=== PATIENT | male | born 1935 | race Caucasian/White ===

== ENCOUNTER → 2016-10-24 | Outpatient (CLI) | payer OTHER ==
[2015-06-29 14:50] VITALS: BP 172/72
--- NOTE | 2016-10-25 07:53 | MRI ---
HISTORY: Chronic low back pain, sciatica Study: MRI lumbar spine without contrast Comparison: May 30, 2015 Technique: Multiplanar multi-sequence MRI of the lumbar spine was obtained. Sagittal T1, sagittal T 2, and stir weighted images, axial T1, and axial T2 images were obtained. Findings: The lumbar spine demonstrates normal alignment with the expected signal characteristics of the bone marrow. The conus of the cord terminates normally. T12 -- L1: There is a small not significantly compressive rightward disc protrusion which is associa aria with a small annular rent. The neural foramina are patent. The joints are normal. L1 -- L2: No evidence for compressive disc disease. The neural foramina are patent. The joints are n ormal. L2 -- L3: Mild concentric disc bulging contributes to mild lateral recess narrowing bilaterally left slightly worse than right. L3 -- L4: Concentric disk bulging effaces the thecal sac and contributes along with facet arthropath y to moderate lateral recess narrowing bilaterally. L4 -- L5: Broad-based disc protrusion contributes along with ligamentous hypertrophy, pedicular shor tening, and facet arthropathy to a severe spinal stenosis with associated lateral recess and foramin al narrowing bilaterally right worse than left. L5 -- S1: There is a small central disc protrusion which causes mild thecal sac effacement. The neur al foramina are patent. The joints are normal. IMPRESSION: As above Reported By:
== END ==
LOC: RAD 08:07
PROVIDERS: ATTEND Nurse Practitioner Family
DX: M51.36 Other intervertebral disc degeneration, lumbar region (principal)
CPT/HCPCS: 72148

== ENCOUNTER 2016-11-15 12:02 | Day surgery (SDC) | payer OTHER ==
[2016-11-15] MEDS ORDERED: XYLOCAINE 1 % (PLAIN) ONE (13:21)
[2016-11-15] MEDS ORDERED: KENALOG INJ 40 MG ONE (13:21)
[2016-11-15] MEDS ORDERED: MARCAINE 0.25% WITH EPI IJ ONE (13:22)
--- NOTE | 2016-11-15 13:40 | DR.H&P ---
H&P - History & Physical for Day of: H&P Date: 11/15/16 - Chief Complaint Chief Complaint: both sides of my low back hurts. my shot 2 years ago fixed my leg pain - Allergies Allergies/Adverse Reactions: Allergies Allergy/AdvReac Type Severity Reaction Status Date / Time Penicillin G AdvReac Intermediate RASH Verified 12/19/12 10:32 - History of Present Illness History of Present Illness: long standing h/o above cc. had a facet injection L4-5, 5-1 Left and this relievd his left radiculopathy. now presents with low back pain bilaterally. MRI conforms facet arthopathy and disc protrusion at multiple levels. - Past Medical History Past Medical History: Kidney Stones, [place] - Past Surgical History Surgical History: Angioplasty/Stents - Social History Does patient currently use any type of tobacco product: Yes Have you used tobacco products in the last 12 months: Yes Type of Tobacco Use: Cigarettes How many years tobacco product used: 60 Packs per day or dips/chews per day: 20 Does any household member use tobacco: Yes Alcohol Use: None Drug Use: None - Physical Exam Vital Signs: Temperature 97.8 F Pulse Rate 93 Respiratory Rate 20 Blood Pressure [Right Arm] 172/72 Blood Pressure 150/66 O2 Sat by Pulse Oximetry 99 Musculoskeletal: Back:Thoracic (no pain on palpation. no stepoff/deformity), Back:Lumbar (pain on palpation L3-S1 bilaterally. neg slr/patricks) Mood Description: Calm Affect: Normal Speech Pattern: Clear - Assessment/Plan (1) Low back pain Qualifiers: Chronicity: C Back pain laterality: B Sciatica presence: S Sciatica laterality: S Status: Acute Plan: interlaminar magaly L4-5 midline
[2016-11-15 14:11] VITALS: BP 174/74
== END 2016-11-15 14:15 | disposition home or self-care (01) | DRG 552 ==
LOC: SURG1 12:02
PROVIDERS: ATTEND Internal Medicine
PROC: 3E0R3BZ Introduction of Anesthetic Agent into Spinal Canal, Percutaneous Approach (ICD-10-PCS; principal; 2016-11-15 12:45)
PROC: 3E0R33Z Introduction of Anti-inflammatory into Spinal Canal, Percutaneous Approach (ICD-10-PCS; principal; 2016-11-15 12:45)
PROC: B01BZZZ Fluoroscopy of Spinal Cord (ICD-10-PCS; principal; 2016-11-15 12:45)
DX: M54.5 Low back pain (principal)
CPT/HCPCS: 62323; 76000; A4222; S0020; J2001; J3301

== ENCOUNTER 2017-01-29 09:43 | Day surgery (SDC) | payer OTHER ==
--- NOTE | 2017-01-29 10:24 | DR.H&P ---
H&P - History & Physical for Day of: H&P Date: 01/29/17 - Chief Complaint Chief Complaint: my back hurts - Allergies Allergies/Adverse Reactions: Allergies Allergy/AdvReac Type Severity Reaction Status Date / Time MS Penicillin G AdvReac Intermediate RASH Verified 12/19/12 10:32 - History of Present Illness History of Present Illness: long standing h/o above cc. magaly in 2015 "fixed (his ) leg pain." recent interlaminar magaly with no relief. pain is confined to back around L4 on palpation and pointed at by patient - Past Medical History Past Medical History: Kidney Stones, [place] - Past Surgical History Surgical History: Angioplasty/Stents - Social History Does patient currently use any type of tobacco product: Yes Have you used tobacco products in the last 12 months: Yes Type of Tobacco Use: Cigarettes How many years tobacco product used: 65 Packs per day or dips/chews per day: 1 pk day Does any household member use tobacco: No Alcohol Use: None Drug Use: None - Review of Systems Musculoskeletal: Back Pain (L4 on palpation) - Physical Exam Vital Signs: Temperature 97.5 F Pulse Rate 88 Respiratory Rate 20 Blood Pressure [Right Arm] 172/72 Blood Pressure 189/73 O2 Sat by Pulse Oximetry 100 Musculoskeletal: Back:Thoracic (no pain on palpation. ), Back:Lumbar (mild pain on palpation. more prominent on right. ) - Assessment/Plan (1) Low back pain Qualifiers: Chronicity: C Back pain laterality: B Sciatica presence: S Sciatica laterality: S Status: Acute Plan: facet injection L3-4, 4-5 right
[2017-01-29] MEDS: XYLOCAINE 1 % (PLAIN) ONE ×2 (10:37→10:38)
[2017-01-29] MEDS: KENALOG INJ 40 MG ONE ×2 (10:38→10:41)
[2017-01-29] MEDS: MARCAINE/EPINEPHRINE ONE ×2 (10:38→10:41)
[2017-01-29 10:52] VITALS: BP 151/66
== END 2017-01-29 10:58 | disposition home or self-care (01) | DRG 552 ==
LOC: SURG1 09:43
PROVIDERS: ATTEND Internal Medicine
PROC: 3E0U33Z Introduction of Anti-inflammatory into Joints, Percutaneous Approach (ICD-10-PCS; 2017-01-29)
PROC: BR16ZZZ Fluoroscopy of Lumbar Facet Joint(s) (ICD-10-PCS; 2017-01-29)
PROC: 3E0U3BZ Introduction of Anesthetic Agent into Joints, Percutaneous Approach (ICD-10-PCS; principal; 2017-01-29 11:30)
DX: M54.5 Low back pain (principal)
CPT/HCPCS: 64493; 64494; 64495; 76000; S0020; J2001; J3301

== ENCOUNTER 2018-11-20 16:22 | Inpatient (IN) ==
[2018-11-20] MEDS ORDERED: LASIX IVP ONE (17:04)
[2018-11-20] MEDS ORDERED: NS 1000 ML 1,000 ML IV SCH (17:04)
[2018-11-20] MEDS ORDERED: K-DUR TAB 20 MEQ PO ONE (17:04)
[2018-11-20] MEDS ORDERED: PHARMACY CONSULT - DOSE _____ XX SCH (17:04)
[2018-11-20 17:31] LABS: BASOPHILS # (AUTO) 0.1 X10^3/uL (0.0-0.1); BASOPHILS % (AUTO) 1.2 % (0.2-1.0); EOSINOPHILS # (AUTO) 0.4 x10^3/uL (0.0-0.2); EOSINOPHILS % (AUTO) 3.8 % (0.9-2.9); HEMATOCRIT 25.2 % (42.0-54.0); HEMOGLOBIN 8.1 g/dL (13.5-18.0); LYMPHOCYTES # (AUTO) 2.1 X10^3/uL (1.3-2.9); LYMPHOCYTES % (AUTO) 21.1 % (21.0-51.0); MEAN CORPUSCULAR VOLUME 72.1 fL (80.0-100.0); MONOCYTES # (AUTO) 0.7 x10^3/uL (0.3-0.8); MONOCYTES % (AUTO) 6.7 % (0.0-13.0); NEUTROPHILS # (AUTO) 6.8 x10^3/uL (2.2-4.8); NEUTROPHILS % (AUTO) 67.2 % (42.0-75.0); PLATELET COUNT 332 X10^3/uL (150.0-450.0); RED CELL DISTRIBUTION WIDTH 17.9 % (11.6-16.5); WHITE BLOOD COUNT 10.2 X10^3/uL (3.6-10.0)
--- NOTE | 2018-11-20 17:36 | DR.H&P ---
H&P - History & Physical for Day of: H&P Date: 11/20/18 - Chief Complaint Chief Complaint: SOB, WEAKNESS, DIZZY - History of Present Illness History of Present Illness: 83 [address] DIRECT ADMIT FROM DR STORY OFFICE AFTER PRESENTING FOR A FOLLOW UP VISIT FOR WEAKNESS, ANEMIA, ACUTE RENAL INSUFFICIENCY. PT HAD HEART CATH AND LOWER EXTREMITY CT WITH IV DYE ~2WEEKS AGO AND HAD ONSET OF RENAL FAILURE WITH CREAT >2, GFR<20 PER FAMILY. PT CO INCREASED WEAKNESS, SOB FEELS LIKE HE IS GOING TO PASSED OUT WALKING TO MAIL BOX. BP 90/50 IN OFFICE WITH O2 SAT 77%. PT HGB 7.7 ON OUT, SEEN GAMING MANAGER THIS AM AND RECOMMEND TRANSFUSION AND RENAL US, WITH IRON REPLACEMENT. PT HAS PMH OF COPD, HTN, CAD, CHF, ANEMIA, RENAL FAILURE. - Past Medical History Past Medical History: Arthritis, CHF, COPD, Coronary Artery Disease, Kidney Stones, [place] Additional Medical History: HEARING IMPAIRMENT - Past Surgical History Surgical History: Angioplasty/Stents - Family History Family Medical History: Diabetes Mellitus, Cancer - Social History Does patient currently use any type of tobacco product: Yes Have you used tobacco products in the last 12 months: Yes Type of Tobacco Use: Cigarettes Alcohol Use: None Drug Use: None Risks, benefits, and alternatives of opioids discussed: No Prescription drug monitoring program results: PDMP reviewed and no concerns identified (IN DR STORY OFFICE [facility]) - Medications Home Medications: penicillin G Allergy (Verified 09/09/18 10:36) - Review of Systems Constitutional: Weakness, Malaise Eyes: No Symptoms Reported ENT: No Symptoms Reported Respiratory: Shortness of Breath, SOB with Excertion Cardiovascular: Palpitations, Edema, Light Headedness Gastrointestinal: Nausea Genitourinary: No Symptoms Reported Musculoskeletal: Back Pain, Leg Pain Neurological: Weakness, Other (DIZZINESS) - Physical Exam Vital Signs: Blood Pressure [Right Arm] 219/91 Blood Pressure 171/73 Oriented: Normal Eyes: Blurred Vision (CHRONIC VISION IMPAIRMENT) Ear: Normal Nose: Normal Throat: Normal Respiratory: RML Diminished, RLL Diminished, LML Diminished, LLL Diminished Cardiovascular: Edema : Normal Auscultation: Bowel Sounds: Normal Palpation: Normal Tenderness: Normal Skin: Decreased Turgur Musculoskeletal: Right, Left, Leg, Back:Lumbar, Sensory Deficit Psychiatric: Anxiety Affect: Anxious Speech Pattern: Clear, Appropriate - Assessment/Plan (1) Anemia Status: Acute Plan: ADMIT, TYPE CROSS MATCH AND TRANSFUSE 2 UNITS PRBC PER PROTOCOL WITH LASIX IV AFTER FIRST UNIT. EKG AND CXR ON ADMISSION. SUPPLEMENTAL O2. ADMISSION LABS, UA, OCCULT STOOL, IRON REPLACEMENT. RENAL US (2) Acute renal failure due to contrast agent Status: Acute (3) Iron deficiency anemia Status: Acute (4) Weakness Status: Acute (5) SOB (shortness of breath) on exertion Status: Acute Plan: HX CAD, COPD, CHF. CXR ON ADMISSION SUPPLEMENTAL O2. TREAT ANEMIA - Allergies Allergies/Adverse Reactions: Allergies Allergy/AdvReac Type Severity Reaction Status Date / Time penicillin G Allergy Verified 09/09/18 10:36
[2018-11-20 17:37] LABS: PLATELET MORPHOLOGY COMMENT NORMAL (NORMAL)
[2018-11-20 17:39] LABS: ANISOCYTOSIS SLIGHT; HYPOCHROMASIA 1+; MICROCYTOSIS SLIGHT
[2018-11-20 17:43] LABS: ALANINE AMINOTRANSFERASE 8 Units/L (12-78); ALBUMIN 3.4 g/dL (3.4-5.0); ALKALINE PHOSPHATASE 86 Units/L (46-116); ASPARTATE AMINO TRANSFERASE 13 Units/L (15-37); BLOOD UREA NITROGEN 33 mg/dL (7-18); CALCIUM 8.8 mg/dL (8.5-10.1); CARBON DIOXIDE 27.4 mmol/L (21-32); CHLORIDE 103 mmol/L (98-107); CREATININE 2.28 mg/dL (0.70-1.30); SODIUM 138 mmol/L (136-145); TOTAL PROTEIN 7.2 g/dL (6.4-8.2); eGFR NON BLACK RACES 29 (>60)
[2018-11-20 17:49] VITALS: BMI 23.6
[2018-11-20] MEDS ORDERED: FLOMAX PO SCH (18:00)
[2018-11-20 18:08] LABS: IRON 45 ug/dL (50-175)
[2018-11-20] MEDS: NICOTINE PATCH TD SCH (18:17)
--- NOTE | 2018-11-20 18:24 | RAD ---
HISTORY: Shortness of breath Study: Single view of the chest. Comparison: 06/19/2018 Findings: Mild cardiomegaly. No focal consolidations, pleural effusions or pneumothorax. Osseous structures demonstrate no acute abnormality. Bilateral hyper expansion with coarsening of interstitial markings. IMPRESSION: 1. No acute cardiopulmonary process. 2. Findings of COPD. Reported By:
[2018-11-20] MEDS ORDERED: BENADRYL INJ 50 MG VIAL IVP ONE (20:12)
[2018-11-20] MEDS ORDERED: TYLENOL 325 MG TAB PO ONE ×2 (20:12→20:39)
[2018-11-20] MEDS ORDERED: BENADRYL INJ 50 MG VIAL ONE (20:39)
[2018-11-20 21:20] LABS: BILIRUBIN,URINE NEGATIVE (NEGATIVE); BLOOD/HEMOGLOBIN,URINE NEGATIVE (NEGATIVE); GLUCOSE, URINE NEGATIVE (NEGATIVE); KETONES,URINE NEGATIVE (NEGATIVE); LEUKOCYTE ESTERASE ,URINE NEGATIVE (NEGATIVE); NITRITES,URINE NEGATIVE (NEGATIVE); PH,URINE 6.5 (5.0 - 8.0); PROTEIN,URINE NEGATIVE (NEGATIVE); UROBILINOGEN,URINE NORMAL (NORMAL)
[2018-11-20 21:22] LABS: APPEARANCE,URINE CLEAR (CLEAR); COLOR,URINE YELLOW (YELLOW)
[2018-11-20] MEDS ORDERED: CATAPRES TAB 0.1 MG PO PRN (23:42)
[2018-11-20] MEDS ORDERED: APRESOLINE INJ 20 MG VIAL IVP PRN (23:44)
[2018-11-20] MEDS ORDERED: NORVASC TAB 5 MG ONE (23:47)
[2018-11-20] MEDS ORDERED: APRESOLINE INJ 20 MG VIAL ONE (23:47)
[2018-11-20] MEDS ORDERED: NORVASC TAB 5 MG PO ONE (23:55)
[2018-11-21] MEDS: NS 500 ML IV 500 ML ONE ×2 (03:30→04:20)
[2018-11-21] MEDS ORDERED: K-DUR TAB 20 MEQ ONE (07:03)
[2018-11-21] MEDS ORDERED: LASIX IVP ONE (07:03)
[2018-11-21] MEDS ORDERED: NS 250 ML IV 250 ML ONE (07:26)
[2018-11-21] MEDS ORDERED: NS 100 ML IV 100 ML with VENOFER 200 MG IV NR ×2 (08:00)
[2018-11-21] MEDS ORDERED: PHARMACY CONSULT - DOSE _____ XX SCH (09:00)
[2018-11-21] MEDS: NICOTINE PATCH TD SCH (09:26)
[2018-11-21 11:28] VITALS: BP 157/76
--- NOTE | 2018-11-21 11:52 | US ---
History: Renal failure Study: Ultrasound of the kidneys Comparison: None Findings: Right kidney measures 10.22 x 5.3 x 6.5 cm with cortical thickness of 1.4 cm. The left kidney measures 7.13 x 4.13 x 4.89 cm with cortical thickness of 1.2 cm. There is no hydronephrosis or renal mass. The urinary bladder is unremarkable without mass or wall thickening. Impression: Small left kidney, otherwise unremarkable. Reported By:
[2018-11-21] MEDS ORDERED: NORVASC TAB 5 MG PO SCH (12:00)
[2018-11-21 12:37] LABS: HEMATOCRIT 34.6 % (42.0-54.0); HEMOGLOBIN 11.1 g/dL (13.5-18.0)
== END 2018-11-21 14:00 | disposition home or self-care (01) | DRG 812 ==
LOC: ICU 16:25
PROVIDERS: ADMIT Internal Medicine; ATTEND Internal Medicine
DX: I10 Essential (primary) hypertension; R06.02 Shortness of breath; D50.9 Iron deficiency anemia, unspecified; R55 Syncope and collapse; N17.9 Acute kidney failure, unspecified; J44.9 Chronic obstructive pulmonary disease, unspecified; I50.9 Heart failure, unspecified
CPT/HCPCS: 36415; 36430; 71010; 71045; 76770; 80053; 81003; 82607; 82728; 82746; 83540; 84466; 85014; 85018; 85025; 86850; 86900; 86901; 86922; 93005; A4222; P9016; J0360; J1200; J1756; J1940; J3490; J7030; J7040; J7050